=== PATIENT | female | born 1990 | race Caucasian/White ===

== ENCOUNTER 2017-07-29 08:07 | Inpatient (IN) | payer BC ==
[2017-07-29] VITALS (33 sets, daily range): BP systolic 106–130; BP diastolic 53–78; PULSE 69–92; RESP 14–18; TEMP 97.6–100.2; O2SAT 99
[~2017-07-29] VITALS: Ht 162.6 cm; Wt 87.0 kg
[~2017-07-29 08:07] MED LIST: PERC5TAB12 PO
[2017-07-29] MEDS ORDERED: LACTATED RINGER'S 1000 ML INJ 1,000 ML IV PRN (09:05)
[2017-07-29] MEDS: LACTATED RINGER'S 1000 ML INJ 1,000 ML IV SCH ×2 (09:05→19:36)
[2017-07-29] MEDS ORDERED: LIDOCAINE HCL 1% 50 ML VIAL I-DERMAL PRN (09:15)
[2017-07-29] MEDS ORDERED: OXYTOCIN 30 UNITS-500ML PREMIX 500 ML IV ONE (09:15)
[2017-07-29] MEDS ORDERED: CITRIC ACID-SODIUM CITRATE LIQ 30 ML UDC PO SCH (09:15)
[2017-07-29] MEDS ORDERED: MINERAL OIL 10 ML VIAL TOPICAL PRN (09:15)
[2017-07-29] MEDS ORDERED: LIDOCAINE HCL 1% 50 ML VIAL INFIL PRN (09:15)
[2017-07-29] MEDS ORDERED: SODIUM CHLORID 0.9% 500 ML INJ 500 ML IV PRN (09:15)
--- NOTE | 2017-07-29 09:17 | HHI.HP ---
HPI Date Seen: Jul 29, 2017 Time Seen: 09:00 Travel History International Travel<30 Days: No Contact w/Intl Traveler<30Days: No Known Affected Area: No History of Present Illness HPI doing well for induction Weeks Gestation: 40 Para: 0 : 1 Last Menstrual Period: Jul 29, 2017 History Past Medical History Medical History: Denies Significant Hx Past Surgical History Narrative Surgical miscarriage Surgical History: No Previous Surgery Social History Alcohol Use: No Tobacco Use: No Substance Abuse: No Allergies-Medications (Allergen,Severity, Reaction): Coded Allergies: No Known Allergies (Unverified , 08/24/16) Home Meds Active Scripts Oxycodone-Acetaminophen (Percocet) 5-325 mg Tab, 1 TAB PO Q6H Y for PAIN, #20 TAB 0 Refills Prov:Neeraj Lemons MD 08/24/16 Review of Systems Except as stated in HPI: all other systems reviewed are Neg Physical Exam Narrative GENERAL: Well-nourished, well-developed patient. SKIN: Warm and dry. HEAD: Normocephalic and atraumatic. EYES: No scleral icterus. No injection or drainage. ENT: No nasal drainage noted. Mucous membranes pink. Airway patent. NECK: Supple, trachea midline. No JVD. CARDIOVASCULAR: Regular rate and rhythm without murmurs, gallops, or rubs. RESPIRATORY: Breath sounds equal bilaterally. No accessory muscle use. BREASTS: Bilateral exam showed no masses , no retractions, no nipple discharge. ABDOMEN/GI: Abdomen soft, non-tender, bowel sounds present, no rebound, no guarding Gravid to [-] weeks size Fundal Height: [-] GENITOURINARY: External Genitalia: intact and normal in appearance BUS glands: [-] Cervix: [-] Dilatation: [-] Effacement: [-] Station: [-] Presentation: [-] Membranes: [intact or ruptured] Uterine Contractions: [-] FHT's: Category: [-] Baseline: [-] Reactive: [-] Variability: [-] Decels: [-] EXTREMITIES: No cyanosis or edema. BACK: Nontender without obvious deformity. No CVA tenderness. NEUROLOGICAL: Awake and alert. Motor and sensory grossly within normal limits. Five out of 5 muscle strength in all muscle groups. Normal speech. Caprini VTE Risk Assessment Caprini VTE Risk Assessment: No/Low Risk (score <= 1) Caprini Risk Assessment Model Point Value = 1 Point Value = 2 Point Value = 3 Point Value = 5 Age 41-60 Minor surgery BMI > 25 kg/m2 Swollen legs Varicose veins or History of unexplained or recurrent spontaneous Oral contraceptives or hormone replacement Sepsis (< 1 month) Serious lung disease, including pneumonia (< 1 month) Abnormal pulmonary function Acute myocardial infarction Congestive heart failure (< 1 month) History of inflammatory bowel disease Medical patient at bed rest Age 61-74 Arthroscopic surgery Major open surgery (> 45 min) Laparoscopic surgery (> 45 min) Malignancy Confined to bed (> 72 hours) Immobilizing plaster cast Central venous access Age >= 75 History of VTE Family history of VTE Factor V Leiden Prothrombin [id number] Lupus anticoagulant Anticardiolipin antibodies Elevated serum homocysteine Heparin-induced thrombocytopenia Other congenital or acquired thrombophilia Stroke (< 1 month) Elective arthroplasty Hip, pelvis, or leg fracture Acute spinal cord injury (< 1 month) Prophylaxis Regimen Total Risk Factor Score Risk Level Prophylaxis Regimen 0-1 Low Early ambulation 2 Moderate Order ONE of the following: *Sequential Compression Device (SCD) *Heparin 5000 units SQ BID 3-4 Higher Order ONE of the following medications: *Heparin 5000 units SQ TID *Enoxaparin/Lovenox 40 mg SQ daily (WT < 150 kg, CrCl > 30 mL/min) *Enoxaparin/Lovenox 30 mg SQ daily (WT < 150 kg, CrCl > 10-29 mL/min) *Enoxaparin/Lovenox 30 mg SQ BID (WT < 150 kg, CrCl > 30 mL/min) AND/OR *Sequential Compression Device (SCD) 5 or more Highest Order ONE of the following medications: *Heparin 5000 units SQ TID (Preferred with Epidurals) *Enoxaparin/Lovenox 40 mg SQ daily (WT < 150 kg, CrCl > 30 mL/min) *Enoxaparin/Lovenox 30 mg SQ daily (WT < 150 kg, CrCl > 10-29 mL/min) *Enoxaparin/Lovenox 30 mg SQ BID (WT < 150 kg, CrCl > 30 mL/min) AND *Sequential Compression Device (SCD) Data Data Vital Signs Reviewed: Yes Orders Orders Admit To Inpatient (07/29/17 ) Code Status (07/29/17 09:05) Vital Signs (Adult) .Per protocol (07/29/17 09:05) Heart (07/29/17 09:05) Amnioinfusion (07/29/17 09:05) Urinary Catheter Management .ONCE (07/29/17 09:05) Diet Liquid (07/29/17 Breakfast) Lactated Ringer's 1000 Ml Inj (Lr 1000 M (07/29/17 09:05) Lactated Ringer's 1000 Ml Inj (Lr 1000 M (07/29/17 09:05) Sodium Chlorid 0.9% 500 Ml Inj (Ns 500 M (07/29/17 09:15) Sodium Chlor 0.9% 1000 Ml Inj (Ns 1000 M (07/29/17 09:25) Lidocaine 1% Inj (50 Ml) (Xylocaine 1% I (07/29/17 09:15) Citric Acid-Sodium Citrate Liq (Bicitra (07/29/17 09:15) Fentanyl Inj (Fentanyl Inj) (07/29/17 09:15) Fentanyl Inj (Fentanyl Inj) (07/29/17 09:15) Complete Blood Count With Diff (07/29/17 09:05) Hold Clot (07/29/17 09:05) Abo/Rh Blood Type (07/29/17 09:05) Urinalysis - C+S If Indicated (07/29/17 09:05) Resp Oxygen Non Rebreathe Mask (07/29/17 ) ^ Epidural / Intrathecal Infus (07/29/17 09:05) Oxytocin 30 Units-500ml Premix (Pitocin (07/29/17 09:15) Lidocaine 1% Inj (50 Ml) (Xylocaine 1% I (07/29/17 09:15) Light Mineral Oil (Muri-Lube Oil) (07/29/17 09:15) Inpatient Certification (07/29/17 ) Specimen To Be Collected PRN (07/29/17 09:05) Assessment/Plan Problem List: (1) 40 weeks gestation of ICD Codes: Z3A.40 - 40 weeks gestation of Assessment and Plan cytotec induction Neeraj Lemons MD Jul 29, 2017 09:17
[2017-07-29] MEDS ORDERED: SODIUM CHLOR 0.9% 1000 ML INJ 1,000 ML IV PRN (09:25)
[2017-07-29 09:29] LABS: AUTOMATED NEUTROPHIL # 8.1 TH/MM3 (1.8-7.7); BASOPHIL # 0.1 TH/MM3 (0-0.2); BASOPHIL % 0.6 % (0.0-2.0); EOSINOPHIL % 0.3 % (0.0-4.0); HEMATOCRIT 38.1 % (35.0-46.0); HEMO FLAGS DIFF FINAL; LYMPH % 15.5 % (9.0-44.0); LYMPHOCYTE # 1.7 TH/MM3 (1.0-4.8); MEAN CORPUSCULAR HEMOGLOBIN 32.8 PG (27.0-34.0); MEAN CORPUSCULAR HGB CONC 34.5 % (32.0-36.0); MONO % 7.2 % (0.0-8.0); NEUT % 76.4 % (16.0-70.0); PLATELET COUNT 123 TH/MM3 (150-450); RED BLOOD COUNT 4.01 MIL/MM3 (4.00-5.30); RED CELL DISTRIBUTION WIDTH 14.1 % (11.6-17.2); WHITE BLOOD COUNT 10.7 TH/MM3 (4.0-11.0)
[2017-07-29 09:30] LABS: BACTERIA, URINE FEW /hpf; BLOOD, URINE NEG (NEG); GLUCOSE,URINE NEG (NEG); KETONE, URINE NEG (NEG); NITRITE,URINE NEG (NEG); SQUAMOUS EPITHELIAL CELL URINE 5 /hpf (0-5); TRANSITIONAL EPI CELLS, URINE <1 /hpf; URINE COLOR YELLOW (YELLW/STRAW)
[2017-07-29] MEDS ORDERED: MISOPROSTOL 100 MCG TAB VAGINAL ONE (09:30)
[2017-07-29 09:31] LABS: COMMENT (UR) CULT NOT INDICATED; CULTURE IF INDICATED CULT NOT INDICATED
--- NOTE | 2017-07-29 16:27 | PD.LABORPN ---
Subjective Subjective doing well Objective Vital Signs Vital Signs Date Time Temp Pulse Resp B/P (MAP) Pulse Ox O2 Delivery O2 Flow Rate FiO2 07/29/17 15:13 97.9 18 07/29/17 15:12 73 120/61 (80) 07/29/17 13:00 98.0 75 18 115/64 (81) 07/29/17 11:30 97.6 18 07/29/17 11:24 69 112/54 (73) 07/29/17 11:00 18 07/29/17 10:00 18 Objective Pelvic Exam: Cervix: [-] Dilatation: 2 Effacement: 70 Station: -2 Presentation: [-] Membranes: AROM Uterine Contractions: q2 FHT's: Category: 1 Baseline: [-] Reactive: [-] Variability: [-] Decels: [-] Weeks Gestation: 40 Gest Age Assessed Date: Jul 29, 2017 Gest Age Assessed Time: 09:00 Pt started active labor?: Yes Active labor start date: Jul 29, 2017 Active labor start time: 12:00 Medical induction of labor?: No Artificial rupture of membrane: Yes Artificial ROM date: Jul 29, 2017 Artifical ROM time: 16:25 Assessment/Plan Problem List: (1) 40 weeks gestation of ICD Codes: Z3A.40 - 40 weeks gestation of Neeraj Lemons MD Jul 29, 2017 16:27
[2017-07-29] MEDS ORDERED: fentaNYL 2MCG-BUPIV 0.125% INJ 100 ML ONE (16:53)
[2017-07-29] MEDS ORDERED: ePHEDrine/NS 25 MG/5 ML SYR ONE (16:54)
[2017-07-29] MEDS ORDERED: ONDANSETRON HCL 4 MG/2 ML VIAL ONE (17:00)
[2017-07-29] MEDS ORDERED: DO NOT ADMINISTER ANTICOAGULANTS PRN (21:30)
[2017-07-29] MEDS ORDERED: NO SYSTEM NARCOTICS PRN (21:30)
[2017-07-29] MEDS ORDERED: ePHEDrine/NS 25 MG/5 ML SYR IV PUSH PRN (21:30)
[2017-07-29] MEDS ORDERED: OXYTOCIN 30 UNITS-500ML PREMIX 500 ML ONE (21:59)
[2017-07-29] MEDS ORDERED: OXYTOCIN 30 UNITS/NS 500ML PREMIX IV SCH (22:15)
[2017-07-29] MEDS: fentaNYL 2MCG-BUPIV 0.125% 100 ML EPIDURAL SCH (22:17)
--- NOTE | 2017-07-29 22:49 | PD.LABORPN ---
Subjective Subjective doing well. Objective Vital Signs Vital Signs Date Time Temp Pulse Resp B/P (MAP) Pulse Ox O2 Delivery O2 Flow Rate FiO2 07/29/17 22:30 115/62 (79) 07/29/17 22:30 87 07/29/17 22:00 14 07/29/17 22:00 75 106/55 (72) 07/29/17 21:56 100.2 07/29/17 21:30 73 115/66 (82) 07/29/17 21:15 77 123/70 (87) 07/29/17 21:00 72 118/66 (83) 07/29/17 20:45 75 115/66 (82) 07/29/17 20:30 74 113/65 (81) 07/29/17 20:30 71 07/29/17 20:25 74 07/29/17 20:25 72 111/63 (79) 07/29/17 20:20 69 111/57 (75) 07/29/17 20:20 73 07/29/17 20:16 75 106/59 (75) 07/29/17 20:15 79 07/29/17 20:10 77 07/29/17 20:10 82 110/56 (74) 07/29/17 20:05 77 109/60 (76) 07/29/17 20:05 78 07/29/17 20:00 98.2 07/29/17 20:00 18 07/29/17 20:00 91 122/69 (86) 99 07/29/17 20:00 92 07/29/17 19:57 80 118/65 (82) 07/29/17 19:55 85 99 07/29/17 19:45 75 125/78 (94) 07/29/17 17:18 18 07/29/17 17:18 97.9 07/29/17 17:16 81 117/75 (89) 07/29/17 16:00 18 07/29/17 15:13 97.9 18 07/29/17 15:12 73 120/61 (80) Objective Pelvic Exam: Cervix: [-] Dilatation: 3 Effacement: Station: -2 Presentation: vtx Membranes: SROM Uterine Contractions: [-] FHT's: Category: 1 Baseline: [-] Reactive: [-] Variability: [-] Decels: [-] Weeks Gestation: 40 Gest Age Assessed Date: Jul 29, 2017 Gest Age Assessed Time: 09:00 Pt started active labor?: Yes Active labor start date: Jul 29, 2017 Active labor start time: 12:00 Medical induction of labor?: No Artificial rupture of membrane: Yes Artificial ROM date: Jul 29, 2017 Artifical ROM time: 16:25 Assessment/Plan Problem List: (1) 40 weeks gestation of ICD Codes: Z3A.40 - 40 weeks gestation of Neeraj Lemons MD Jul 29, 2017 22:49
[2017-07-29] MEDS ORDERED: ACETAMINOPHEN 325 MG TAB PO PRN (23:00)
[2017-07-30] VITALS (28 sets, daily range): BP systolic 89–128; BP diastolic 44–74; PULSE 61–96; RESP 15–20; TEMP 98–100.1; O2SAT 99
[2017-07-30] MEDS ORDERED: BUPIVACAINE HCL PF 0.25% 10 ML VIAL ONE (02:05)
[2017-07-30] MEDS: fentaNYL 2MCG-BUPIV 0.125% 100 ML EPIDURAL SCH (04:26)
[2017-07-30] MEDS: LACTATED RINGER'S 1000 ML INJ 1,000 ML IV SCH ×3 (04:26→22:30)
--- NOTE | 2017-07-30 08:17 | PD.LABORPN ---
Subjective Subjective doing well without complaints. she is getting tired and is considering inducrion. she will discuss with family Objective Vital Signs Vital Signs Date Time Temp Pulse Resp B/P (MAP) Pulse Ox O2 Delivery O2 Flow Rate FiO2 07/30/17 07:00 16 07/30/17 07:00 100.1 07/30/17 06:50 95 121/69 (86) 07/30/17 05:00 73 118/61 (80) 07/30/17 03:31 98.4 07/30/17 03:30 77 128/74 (92) 07/30/17 03:00 76 125/66 (85) 07/30/17 02:30 76 115/68 (84) 07/30/17 00:30 71 122/62 (82) 07/30/17 00:01 96 109/61 (77) 07/30/17 00:00 15 07/29/17 23:58 99.2 Objective Pelvic Exam: Cervix: [-] Dilatation: 6 Effacement: [-] Station: -2 Presentation: [-] Membranes: AROM Uterine Contractions: [-] FHT's: Category: 1 Baseline: [-] Reactive: [-] Variability: [-] Decels: [-] Weeks Gestation: 40 Gest Age Assessed Date: Jul 29, 2017 Gest Age Assessed Time: 09:00 Pt started active labor?: Yes Active labor start date: Jul 29, 2017 Active labor start time: 12:00 Medical induction of labor?: No Artificial rupture of membrane: Yes Artificial ROM date: Jul 29, 2017 Artifical ROM time: 16:25 Assessment/Plan Problem List: (1) 40 weeks gestation of ICD Codes: Z3A.40 - 40 weeks gestation of Neeraj Lemons MD Jul 30, 2017 08:04
[2017-07-30] MEDS ORDERED: PHENYLEPH/NS 1000 MCG/10 ML SYR IV ONE (12:00)
[2017-07-30] MEDS ORDERED: OXYTOCIN 10 UNIT/ML AMP IV ONE (12:00)
[2017-07-30] MEDS ORDERED: MORPHINE SULFATE PF 5 MG/10 ML VIAL ONE (12:00)
[2017-07-30] MEDS ORDERED: ONDANSETRON HCL 4 MG/2 ML VIAL IV PUSH ONE (12:00)
[2017-07-30] MEDS ORDERED: LACTATED RINGER'S 1000 ML INJ 1,000 ML IV ONE (12:00)
[2017-07-30] MEDS ORDERED: LIDOCAINE 2%/EPINEPHrine PF 1:200,000 20ML SDV OTHER ONE (12:00)
[2017-07-30] MEDS ORDERED: DEXAMETHASONE SOD PHOS 4 MG/ML VIAL IV ONE (12:00)
--- NOTE | 2017-07-30 12:09 | PD.OB.DELI ---
Procedure Note Section Procedure Pre Op Diagnosis: (1) Arrest of dilation, delivered, current hospitalization Post Op Diagnosis: (1) Arrest of dilation, delivered, current hospitalization Performed by Neeraj Lemons Procedure: Primary Low Transverse Sec Indication for delivery: Other (arrest of dilatation at 6 cm) Previous condition: None Informed consent obtained: For anesthesia, For procedure Confirmed correct: Patient, Procedure, Time-out taken Anesthesia: Epidural Monitoring during procedure: Blood pressure monitoring Urinary catheter: To dependent drainage (bllody before and after procedure) Sterile preparation: Duraprep Position: Supine, Supine with wedge to left side Operative Features Skin Incision: Pfannenstiel Uterine Incision: Low transverse w/knife / blunt ext Membranes Ruptured: Previously Presentation: Occiput anterior Delivery date: Jul 30, 2017 Delivery time: 11:27 Delivery of : Uneventful : Male One Minute : 9 Five Minute : 9 Weight: 9# 8 oz Status of infant: Viable Placenta delivered: Intact Estimated blood loss: 500 Procedure tolerated: Well Maternal Condition: Stable Condition: Stable Neeraj Lemons MD Jul 30, 2017 12:09
[2017-07-30] MEDS ORDERED: KETOROLAC TROMETHAMINE 60 MG/2 ML (IM) VIAL IM PRN (12:15)
[2017-07-30] MEDS ORDERED: SIMETHICONE 80 MG CHEWABLE TAB PO PRN (12:15)
[2017-07-30] MEDS ORDERED: oxyCODONE/ACETAMINOPHEN 5 MG/325 MG TAB PO PRN ×2 (12:15)
[2017-07-30] MEDS ORDERED: OXYTOCIN 30 UNITS-500ML PREMIX 500 ML IV ONE (12:15)
[2017-07-30] MEDS ORDERED: SODIUM CHLORIDE 0.9% FLUSH 10 ML FLUSH IV FLUSH PRN (12:15)
[2017-07-30] MEDS ORDERED: KETOROLAC TROMETHAMINE 60 MG/2 ML (IM) VIAL IM ONE (12:57)
[2017-07-30] MEDS ORDERED: KETOROLAC TROMETHAMINE 30 MG/ML (IVP) VIAL ONE (12:58)
--- NOTE | 2017-07-30 13:07 | MP ---
cc: AZEB LEMONS M.D. DATE OF SURGERY: 07/30/2017 PROCEDURE: Primary low transverse section PREOPERATIVE DIAGNOSIS: Arrest of dilatation 6 cm. The patient in labor for 24 hours. POSTOPERATIVE DIAGNOSIS: Arrest of dilatation 6 cm. The patient in labor for 24 hours. SURGEON: Dr. Azeb Lemons. ESTIMATED BLOOD LOSS: 500 cc ANESTHESIA: Epidural. COMPLICATIONS: None. FINDINGS: Live male infant, Apgars 9 and 9, 9 pounds 8 ounces. PROCEDURE IN DETAIL: After informed consent, the patient was taken to the operating room where she was placed under epidural anesthesia, placed in the supine position, left lateral tilt. The abdomen, perineum, and vagina prepped and draped in normal sterile fashion. After adequate anesthesia was assured and a time out was taken, a Pfannenstiel skin incision was carried sharply through the skin to the fascia. The fascia was nicked in the midline. The incision was extended laterally using Aly scissors. The rectus muscle was dissected off the fascia with sharp and blunt dissection. The rectus muscle in the midline. The perineum was entered bluntly with a finger. The incision was extended laterally using blunt traction. The uterus was noted to be midline. Bladder was swollen. Bladder was dissected off the lower uterine segment. A low transverse uterine incision was then made, carried sharply to the uterine cavity. Clear fluid was noted, just above the cervix. A hand was placed into the uterus. The infant's head was guided through the incision using fundal pressure. The infant's head was readily delivered. Nose and mouth suctioned. The infant was delivered the remaining portion of the way. The cord was clamped and cut and the infant was handed to the pediatrics in attendance. Cord blood was collected. The placenta was delivered manually. The uterus was exteriorized, wiped free from all remaining products of conception. The uterine incision was closed with running locking stitch of chromic suture. A second layer had to be placed for hemostasis and strength. There was still slight oozing coming from the midline. A 3-0 [id number] was placed over this area that was now hemostatic. The uterus was placed back in the abdomen, noted to be hemostatic. The pelvis was irrigated and freed of all debris and clots. The peritoneum was closed with Vicryl suture. The fascia was closed with Vicryl suture. The skin was closed with subcuticular stitch. Each layer was noted to be hemostatic prior to closure. The patient tolerated the procedure well. MD FABIO Guevara/TONY /12:10 PM /12:52 PM
[2017-07-30] MEDS ORDERED: EPIDURAL-DO NOT ADMINISTER ANTICOAGULANTS PRN (14:30)
[2017-07-30] MEDS ORDERED: EPIDURAL-NO SYSTEMIC NARCOTICS PRN (14:30)
[2017-07-30] MEDS ORDERED: EPIDURAL-DIPHENHYDRAMINE HCL 50 MG/ML VIAL IV PUSH PRN (14:30)
[2017-07-30] MEDS ORDERED: EPIDURAL-NALOXONE HCL 0.4 MG/ML AMP IV PUSH PRN (14:30)
[2017-07-30] MEDS ORDERED: EPIDURAL-DIPHENHYDRAMINE HCL 50 MG CAP PO PRN (14:30)
[2017-07-30] MEDS: IBUPROFEN 600 MG TAB PO PRN (20:30)
[2017-07-30] MEDS: SODIUM CHLORIDE 0.9% FLUSH 10 ML FLUSH IV FLUSH SCH (21:00)
[2017-07-30] MEDS ORDERED: OXYTOCIN 30 UNITS-500ML PREMIX 500 ML IV PRN (22:15)
[2017-07-31] MEDS: IBUPROFEN 600 MG TAB PO PRN ×4 (03:10→21:00)
[2017-07-31 06:02] LABS: AUTOMATED NEUTROPHIL # 13.7 TH/MM3 (1.8-7.7); BASOPHIL % 0.2 % (0.0-2.0); EOSINOPHIL % 0.2 % (0.0-4.0); HEMATOCRIT 30.6 % (35.0-46.0); LYMPH % 10.2 % (9.0-44.0); LYMPHOCYTE # 1.7 TH/MM3 (1.0-4.8); MONO % 5.1 % (0.0-8.0); NEUT % 84.3 % (16.0-70.0); PLATELET COUNT 84 TH/MM3 (150-450); RED BLOOD COUNT 3.16 MIL/MM3 (4.00-5.30); RED CELL DISTRIBUTION WIDTH 14.1 % (11.6-17.2); WHITE BLOOD COUNT 16.2 TH/MM3 (4.0-11.0)
[2017-07-31 06:20] LABS: HEMO FLAGS AUTO DIFF
[2017-07-31 06:53] LABS: BANDS 8 % (0-6); NEUTROPHIL # MANUAL DIFF 13.1 TH/MM3 (1.8-7.7); PLATELET ESTIMATE SMEAR LOW (NORMAL); POLYS (SEG NEUTROPHILS) 73 % (16-70); SCAN/DIFF FINAL DIFF MANUAL; WBC DIFF SAMPLE 100
[2017-07-31 06:54] LABS: PLATELET MORPHOLOGY ENLARGED (NORMAL)
--- NOTE | 2017-07-31 07:30 | HHI.OB ---
Subjective Post Day: 1 Remarks doing well Objective Vitals/I&O Vital Signs Date Time Temp Pulse Resp B/P (MAP) Pulse Ox O2 Delivery O2 Flow Rate FiO2 07/30/17 23:10 98.4 81 18 96/44 (61) 07/30/17 21:30 18 07/30/17 20:00 98.9 18 07/30/17 20:00 82 104/58 (73) 07/30/17 13:45 98.0 07/30/17 13:45 63 18 112/71 (85) 07/30/17 13:14 118/74 (89) 07/30/17 13:14 61 18 07/30/17 13:08 99 07/30/17 13:00 65 18 115/71 (86) 07/30/17 12:45 99 07/30/17 12:45 77 18 107/70 (82) 07/30/17 12:30 99 07/30/17 12:30 80 20 109/63 (78) 07/30/17 12:15 99 07/30/17 12:15 96 18 07/30/17 12:00 98.0 18 07/30/17 12:00 99 07/30/17 10:30 75 104/53 (70) 07/30/17 10:00 77 92/74 (80) 07/30/17 09:30 70 16 109/57 (74) 07/30/17 09:03 69 95/54 (68) 07/30/17 09:01 62 07/30/17 09:01 89/48 (62) 07/30/17 09:00 16 07/30/17 08:30 16 07/30/17 07:30 80 102/60 (74) Objective Remarks GENERAL: Well-nourished, well-developed patient. ABDOMEN/GI: Abdomen soft, non-tender. Fundus: Firm, non-tender at umbilicus. GENITOURINARY: Light to moderate bleeding. EXTREMITIES: No cyanosis or edema, non-tender, without signs of DVT. Medications and IVs Current Medications Medications (Trade) Dose Ordered Sig/Maura Route Start Time Stop Time Status Last Admin Lactated Ringer's 1,000 ml @ 100 mls/hr Q10H IV 07/30/17 17:04 07/31/17 13:03 07/30/17 22:30 Oxytocin 500 ml @ 100 mls/hr UNSCH X1 PRN IV 07/30/17 22:15 07/31/17 22:14 (NS Flush) 2 ml BID IV FLUSH 07/30/17 21:00 (NS Flush) 2 ml UNSCH PRN IV FLUSH 07/30/17 12:15 (Mylicon Chew) 80 mg QID PRN PO 07/30/17 12:15 (Motrin) 600 mg Q6H PRN PO 07/30/17 12:15 07/31/17 03:10 (Toradol Inj) 30 mg Q6H PRN IM 07/30/17 12:15 07/31/17 12:14 (Percocet 5-325 Mg) 1 tab Q4H PRN PO 07/30/17 12:15 (Percocet 5-325 Mg) 2 tab Q4H PRN PO 07/30/17 12:15 (M-M-R Ii Inj) 0.5 ml ONCE ONCE SQ 07/31/17 16:00 07/31/17 16:01 (Boostrix Inj) 0.5 ml ONCE ONCE IM 07/31/17 16:00 07/31/17 16:01 Miscellaneous Information NO SYSTEMIC NARCOTICS TO BE GIVEN FO... UNSCH PRN .XX 07/30/17 14:30 07/31/17 14:29 (Narcan Inj) 0.4 mg UNSCH PRN IV PUSH 07/30/17 14:30 07/31/17 14:29 (Benadryl Inj) 25 mg Q6H PRN IV PUSH 07/30/17 14:30 07/31/17 14:29 (Benadryl) 50 mg Q6H PRN PO 07/30/17 14:30 07/31/17 14:29 Miscellaneous Information ALL NURSING DEPARTMENTS UNSCH PRN .XX 07/30/17 14:30 07/31/17 14:29 Assessment/Plan Problem List: (1) 40 weeks gestation of ICD Codes: Z3A.40 - 40 weeks gestation of (2) Delivered by section ICD Codes: O82 - Encounter for delivery without indication Assessment and Plan arrest of dilatation 6 cm, had CS Neeraj Lemons MD Jul 31, 2017 07:30
[2017-07-31 07:40] VITALS: BP 115/65; PULSE 74; RESP 16; TEMP 97.7
[2017-07-31] MEDS ORDERED: DOCUSATE SODIUM 50 MG/SENNA 8.6 MG TAB PO PRN (11:30)
[2017-07-31] MEDS ORDERED: DIPHTH/TETANUS/ACEL PERTUSSIS (BOOSTER) 0.5 ML VIAL/PFS IM ONE (16:00)
[2017-07-31] MEDS ORDERED: MEASLES, MUMPS, RUBELLA VACCINE 0.5 ML VIAL SQ ONE (16:00)
[2017-07-31 20:00] VITALS: BP 117/72; PULSE 82; RESP 18; TEMP 98
[2017-08-01 00:59] VITALS: RESP 18
[2017-08-01 02:00] VITALS: BP 120/76; PULSE 81; RESP 18; TEMP 97.8
[2017-08-01] MEDS: IBUPROFEN 600 MG TAB PO PRN ×2 (02:52→09:12)
[2017-08-01 07:45] VITALS: BP 121/68; PULSE 66; RESP 20; TEMP 97.5
[2017-08-01] MEDS: SODIUM CHLORIDE 0.9% FLUSH 10 ML FLUSH IV FLUSH SCH (09:00)
--- NOTE | 2017-08-01 09:10 | HHI.OB ---
Subjective Post Day: 2 Remarks doing well Objective Vitals/I&O Vital Signs Date Time Temp Pulse Resp B/P (MAP) Pulse Ox O2 Delivery O2 Flow Rate FiO2 08/01/17 02:00 97.8 81 18 120/76 (91) 08/01/17 00:59 18 07/31/17 20:00 98.0 07/31/17 20:00 82 18 117/72 (87) Objective Remarks GENERAL: Well-nourished, well-developed patient. ABDOMEN/GI: Abdomen soft, non-tender. Fundus: Firm, non-tender at umbilicus. GENITOURINARY: Light to moderate bleeding. EXTREMITIES: No cyanosis or edema, non-tender, without signs of DVT. Medications and IVs Current Medications Medications (Trade) Dose Ordered Sig/Maura Route Start Time Stop Time Status Last Admin (NS Flush) 2 ml BID IV FLUSH 07/30/17 21:00 (NS Flush) 2 ml UNSCH PRN IV FLUSH 07/30/17 12:15 (Mylicon Chew) 80 mg QID PRN PO 07/30/17 12:15 (Motrin) 600 mg Q6H PRN PO 07/30/17 12:15 08/01/17 02:52 (Percocet 5-325 Mg) 1 tab Q4H PRN PO 07/30/17 12:15 (Percocet 5-325 Mg) 2 tab Q4H PRN PO 07/30/17 12:15 (Jackelyn-Colace) 2 tab Q12H PRN PO 07/31/17 11:30 07/31/17 12:37 Assessment/Plan Problem List: (1) 40 weeks gestation of ICD Codes: Z3A.40 - 40 weeks gestation of (2) Delivered by section ICD Codes: O82 - Encounter for delivery without indication Assessment and Plan arrest of dilatation 6 cm, had CS dc home Neeraj Lemons MD Aug 01, 2017 09:10
--- NOTE | 2017-08-01 09:15 | HHI.DCPOC ---
Discharge Care Plan Diagnosis: (1) Delivered by section Report Symptoms to Your Doctor -Temperature above 100.5 degrees -Redness, of incision or excessive or foul smelling drainage -Unusual pain or calf pain -Increased vaginal bleeding -Painful or difficulty urinating -Feelings of extreme sadness or anxiety after 2 weeks Goals to Promote Your Health * To prevent worsening of your condition and complications * To maintain your health at the optimal level Directions to Meet Your Goals Take your medications as prescribed Follow your dietary instruction Follow activity as directed Ensure plenty of rest for recovery Drink fluids for hydration Keep your appointments as scheduled Take your immunizations and boosters as scheduled If your symptoms worsen call your PCP, if no PCP go to Urgent Care Center or Emergency Room Smoking is Dangerous to Your Health. Avoid second hand smoke Call the 24-hour crisis hotline for domestic abuse at Neeraj Lemons MD Aug 01, 2017 09:15
--- NOTE | 2017-08-01 09:16 | HHI.DS ---
Admission Date Jul 29, 2017 at 08:07 Discharge Date: Aug 01, 2017 Admitting Diagnosis Diagnosis: (1) 40 weeks gestation of ICD Codes: Z3A.40 - 40 weeks gestation of Delivery Date: Jul 30, 2017 : Primary Infant: Male Brief History doing well for induction Hospital Course doing well 2 days post op and wants to go home Pt Condition on Discharge: Good Discharge Disposition: Discharge Home Discharge Instructions Diet Instructions: As Tolerated, No Restrictions Activities You Can Perform: Pelvic Rest Activities to Avoid: Driving for 24 hrs Follow up Referrals: [facility] - 2 Weeks [facility] with Neeraj Lemons MD Discontinued Medications: Oxycodone-Acetaminophen (Percocet) 5-325 mg Tab 1 TAB PO Q6H PRN for PAIN, #20 TAB 0 Refills Neeraj Lemons MD Aug 01, 2017 09:16
== END 2017-08-01 13:53 | disposition home or self-care (01) | DRG 766 ==
LOC: H2EB 08:07 → H1EA 07-30 13:34
PROVIDERS: ADMIT Obstetrics & Gynecology; ATTEND Obstetrics & Gynecology
PROC: 00HU33Z Insertion of Infusion Device into Spinal Canal, Percutaneous Approach (ICD-10-PCS; 2017-07-29)
PROC: 3E0R3BZ Introduction of Anesthetic Agent into Spinal Canal, Percutaneous Approach (ICD-10-PCS; 2017-07-29)
PROC: 10D00Z1 Extraction of Products of Conception, Low, Open Approach (ICD-10-PCS; principal; 2017-07-31)
DX: O62.0 Primary inadequate contractions (principal); Z37.0 Single live birth; Z3A.40 40 weeks gestation of pregnancy
CPT/HCPCS: 59025; 81001; 85007; 85025; 85027; 86900; 86901; J1100; J1885; J2274; J2370; J2405; J2590; J3010; J7120